=== PATIENT | male | born 1955 | race Caucasian/White ===

== ENCOUNTER → 2016-09-05 | Outpatient (CLI) | payer BC ==
--- NOTE | 2016-09-05 08:53 | DIAGNOSTIC IMAGING REPORT ---
TESTICULAR ULTRASOUND HISTORY: Right testicular pain. COMPARISON: None. FINDINGS: Right testis: 4.3 x 2.3 x 2.8 cm. Slightly heterogeneous appearance to the right testis with a few hypoechoic striations. There are no intratesticular masses. Normal color flow. No hydrocele. The epididymis is unremarkable. Left testis: 4.5 x 2.7 x 2.0 cm. There are no intratesticular masses. Normal color flow. No hydrocele. The epididymis is unremarkable. Left-sided varicocele. IMPRESSION: 1. Slightly heterogeneous appearance the right testis which could be due to mild atrophy or an old small infarct. 2. Normal left testis. 3. Left-sided varicocele. Electronically signed by: Trever Solitario M.D. 09/05/2016 8:51 AM Dictated Date/Time: 09/05/2016 8:49 AM
== END | disposition home or self-care (01) ==
LOC: C.ULTRBC 08:01
PROVIDERS: ATTEND Family Medicine
DX: N50.811 Right testicular pain (principal); I86.1 Scrotal varices

== ENCOUNTER → 2017-02-20 | Outpatient (CLI) | payer BC ==
--- NOTE | 2017-02-20 10:53 | DIAGNOSTIC IMAGING REPORT ---
CAROTID DOPPLER NECK ART CLINICAL HISTORY: 61 years-old Male presenting with VISION CHANGES. TECHNIQUE: Real-time grayscale and color and spectral Doppler ultrasound imaging of the bilateral carotid arteries was performed. NASCET criteria was used in evaluating this study. COMPARISON: None. FINDINGS: Right: Common carotid: Patent. Peak systolic velocity 91 cm/s. Internal carotid artery: Patent. Peak systolic velocity 95 cm/s. External carotid artery: Patent. Peak systolic velocity 127 cm/s. Systolic ratio: 1.0. Left: Common carotid: Patent. Peak systolic velocity 110 cm/s. Internal carotid artery: Patent. Peak systolic velocity 104 cm/s. External carotid artery: Patent. Peak systolic velocity 102 cm/s. Systolic ratio: 0.9. Bilateral antegrade flow within the vertebral arteries. Reference ranges: Normal ICA peak systolic velocity less than 125 cm/s. Normal ICA peak systolic velocity to common carotid artery velocity ratio is less than 2: less than 2 equates to less than 50% stenosis, 2-4 equates to 50-69% stenosis, greater than 4 equates to greater than or equal to 70% stenosis. Normal ICA end-diastolic velocity less than 40. Blood pressure Brachial: Right: 145/79 mmHg, Left: 140/85 mmHg. IMPRESSION: No hemodynamically significant stenosis seen within the carotid arteries. Electronically signed by: Wilber Vasquez M.D. 02/20/2017 10:51 AM Dictated Date/Time: 02/20/2017 10:51 AM
== END | disposition home or self-care (01) ==
LOC: C.ULTRBC 09:59
PROVIDERS: ATTEND Physician Assistant Medical
DX: H53.9 Unspecified visual disturbance (principal)

== ENCOUNTER 2021-05-30 21:51 | Observation (INO) ==
[2021-05-30 22:25] LABS: Basophils # (auto) 0.03 K/uL (0-0.2); Basophils % (auto) 0.5 %; Eosinophils # (auto) 0.22 K/uL (0-0.5); Eosinophils % (auto) 3.4 %; Hematocrit (blood only) 48.9 % (42-52); Immature Granulocytes # (auto) 0.01 K/uL (0.00-0.02); Immature Granulocytes % (auto) 0.2 %; Lymphocytes # (auto) 1.53 K/uL (1.2-3.4); Lymphocytes % (auto) 23.9 %; Mean Corpuscular Hemoglobin 30.7 pg (25-34); Mean Corpuscular Hgb Conc 34.8 g/dL (32-36); Mean Corpuscular Volume 88.4 fL (80-100); Mean Platelet Volume 10.6 fL (7.4-10.4); Monocytes # (auto) 0.84 K/uL (0.11-0.59); Monocytes % (auto) 13.1 %; Neutrophils # (auto) 3.78 K/uL (1.4-6.5); Neutrophils % (auto) 58.9 %; Platelet Count 181 K/uL (130-400); RDW Coefficient of Variation 12.2 % (11.5-14.5); RDW Standard Deviation 39.5 fL (36.4-46.3); Red Blood Count 5.53 M/uL (4.7-6.1); White Blood Count 6.41 K/uL (4.8-10.8)
[2021-05-30 22:36] LABS: Partial Thromboplastin Ratio 0.9; Partial Thromboplastin Time 23.6 Seconds (21.0-31.0); Prothrombin Time 10.5 Seconds (9.0-12.0)
[2021-05-30 22:42] LABS: Alanine Aminotransferase 30 U/L (12-78); Albumin Level 3.9 gm/dl (3.4-5.0); Aspartate Aminotransferase 18 U/L (15-37); BUN Creatinine Ratio 12.5 (10-20); Blood Urea Nitrogen 14 mg/dl (7-18); Calcium 9.3 mg/dl (8.5-10.1); Carbon Dioxide 25 mmol/L (21-32); Chloride 105 mmol/L (98-107); Creatinine Clr Calc Pharmacy 65.2 ml/min; Est GFR (African American) 80.1 ml/min; Est GFR (Non-African American) 69.1 ml/min; Glucose 100 mg/dl (70-99); Potassium 3.8 mmol/L (3.5-5.1); Sodium 138 mmol/L (136-145)
[2021-05-30 22:46] LABS: Alkaline Phosphatase 54 U/L (45-117); Bilirubin,Total 1.1 mg/dl (0.2-1); Total Protein 7.9 gm/dl (6.4-8.2); Troponin I < 0.015 ng/ml (0-0.045)
[2021-05-31] MEDS ORDERED: SODIUM CHLORIDE 0.9% 1000ML 1,000 ML IV SCH ×2 (01:30→05:15)
[2021-05-31] MEDS ORDERED: OPTIRAY 320 125ml IV ONE (02:26)
[2021-05-31] MEDS ORDERED: Heparin IV Adult Wt-Based Standard WITH Bolus Protocol STA (05:06)
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
[2021-05-31 06:40] LABS: INR 1.1 (0.9-1.1); Partial Thromboplastin Time 26.6 Seconds (21.0-31.0)
[2021-05-31] MEDS ORDERED: HEPARIN SOD (PORCINE) 1000 UNIT/ML ONE (06:47)
[2021-05-31] MEDS ORDERED: HEPARIN 25000 UNIT/500 ML D5W IV ONE (06:47)
--- NOTE | 2021-05-31 06:50 | CT Scan Report ---
CT ANGIOGRAPHY OF THE CHEST, PULMONARY EMBOLUS PROTOCOL CLINICAL HISTORY: Palpitations. Evaluate for pulmonary emboli. COMPARISON STUDY: Chest CT August 13, 2006. Chest radiograph May 30, 2021. TECHNIQUE: Following IV administration of 120 mL of Optiray, helical axial images of the chest were o btained utilizing the pulmonary embolus protocol. Maximal intensity projections and sagittal and cor onal reformats were viewed on an independent 3D workstation. IV contrast was administered without co mplication. Automated exposure control was utilized for the study. A dose lowering technique was ut ilized adhering to the principles of ALARA. CT DOSE: 326.85 mGy.cm FINDINGS: There are several segmental pulmonary emboli within the bilateral lower lobes. The size of the heart is normal. No pericardial effusion. No thoracic lymphadenopathy. No thoracic aortic dissec tion is present. Central airways are patent. There are multiple pulmonary nodules within the lungs. S everal of these are calcified. Pulmonary nodules have decreased in size and number since CT of 2006. No new nodules are present. Central airways are patent. No consolidation to suggest pneu monia. There is no pneumothorax or pleural effusion. No acute fracture or suspicious lesion is identi fied within the visualized skeletal structures. IMPRESSION: 1. Several segmental pulmonary emboli within the bilateral lower lobes. 2. Multiple pulmonary nodules, decreased in size and number since chest CT April 12, 2007. These ar e benign. These are nonspecific although could reflect a granulomatous process. ACT 112: Negative or not required by law. Electronically signed by: José Miguel Betts M.D. 05/31/2021 6:49 AM
[2021-05-31] MEDS ORDERED: HEPARIN SOD (PORCINE) 1000 UNIT/ML IV ONE (07:13)
[2021-05-31] MEDS ORDERED: ONDANSETRON INJ 2 MG/ML 2 ML VIAL IV PRN (07:13)
[2021-05-31] MEDS ORDERED: ACETAMINOPHEN 325 MG TAB PO PRN (07:13)
[2021-05-31] MEDS ORDERED: HEPARIN SODIUM/DEXTROSE 25,000 UNITS/500 ML BAG IV SCH (07:13)
--- NOTE | 2021-05-31 08:00 | Ultrasound Report ---
BILATERAL LOWER EXTREMITY VENOUS DOPPLER CLINICAL HISTORY: Pulmonary emboli. COMPARISON STUDY: Right lower extremity venous Doppler ultrasound December 17, 2017. TECHNIQUE: Sonography of the deep venous system of the bilateral lower extremities was performed. Co mpression and augmentation were evaluated. FINDINGS: The bilateral common femoral, superficial femoral and popliteal veins were compressible. A ugmentation was normal. Flow was shown within the deep calf vessels. IMPRESSION: No evidence of deep venous thrombus within the bilateral lower extremities. ACT 112: Negative or not required by law. Electronically signed by: José Miguel Betts M.D. 05/31/2021 7:58 AM
--- NOTE | 2021-05-31 08:18 | XRay Report ---
XR chest 1V portable CLINICAL HISTORY: Atypical chest pain. COMPARISON STUDY: Chest radiograph May 26, 2021. FINDINGS: Lung volumes are normal. Lungs are clear. There is no pneumothorax or pleural effusion. Car diac size is normal. Mediastinal contours are normal. There is no evidence for pulmonary edema. A rig ht midlung nodule is unchanged since prior exam. This is benign given stability. IMPRESSION: No acute cardiopulmonary findings. ACT 112: Negative or not required by law. Electronically signed by: José Miguel Betts M.D. 05/31/2021 8:17 AM
--- NOTE | 2021-05-31 12:27 | XCELERA ---
[id number]
--- NOTE | 2021-05-31 13:22 | Electrocardiogram Report ---
Test Reason : Blood Pressure : / mmHG Vent. Rate : 100 BPM Atrial Rate : 100 BPM P-R Int : 138 ms QRS Dur : 106 ms QT Int : 360 ms P-R-T Axes : 059 174 030 degrees QTc Int : 464 ms Normal sinus rhythm Right ventricular hypertrophy Possible Inferior infarct (cited on or before 26-MAY-2021) Abnormal ECG When compared with ECG of 26-MAY-2021 09:40, No significant change was found Confirmed by Steven Lawson ([id number]) on 05/31/2021 1:21:45 PM Referred By: REFERRED SELF Confirmed By:Rajeev Lawson
[2021-05-31 14:28] LABS: Partial Thromboplastin Ratio 2.5
[2021-05-31 14:37] LABS: Partial Thromboplastin Time 66.1 Seconds (21.0-31.0)
--- NOTE | 2021-05-31 20:25 | Emergency Department Note ---
Impression & Plan Bilateral pulmonary embolism, Heart palpitations ED Provider Note CHIEF COMPLAINT: Heart racing HISTORY OF PRESENT ILLNESS: This 65-year-old male patient presents to the emergency department with complaints of heart palpitations. Patient states 2 separate occasions today he noticed his heart was racing. He took his pulse and it was upwards of 170 bpm. Patient denies any fevers, shortness of breath, chest pain. He states he is not Covid vaccinated. Patient does have a history of sarcoidosis. Pt also expresses concerns about his relationship with his . He wonders if this is a stress reaction to a difficult few days. REVIEW OF SYSTEMS: A review of systems was performed with positives and pertinent negatives listed in the history of present illness. 10 systems were reviewed and are otherwise negative. ALLERGIES: see below MEDICATIONS: see below PMH: see below SOCIAL HISTORY: see below DDx: Premature contractions, electrolyte abnormality, cardiac dysrhythmia, thyroid dysfunction, pulmonary embolism, infection, gastrointestinal, as well as other pathologies. PHYSICAL EXAM: Vital signs reviewed. General: Well-appearing but anxious 65 yo male, in no significant distress. HEENT: No scleral icterus, PERRLA, neck supple. Atraumatic. Cardiovascular: Regular rate and rhythm, no extra sounds. Pulmonary: Clear to auscultation bilaterally, normal work of breathing. Abdomen: Soft, nontender, nondistended, positive bowel sounds. Musculoskeletal: Atraumatic, no peripheral edema. Neurologic: Patient awake alert and oriented x 3, speech is clear Skin: Warm, dry, no rash EMERGENCY DEPARTMENT COURSE/MDM: This patient was evaluated and appeared to be in no significant distress. Patient had waited several hours prior to evaluation due to overwhelming volumes and staffing shortages. He remained stable at the time of my evaluation. Patient seen primarily interested in speaking about his relationship with his , stating that he does not have another outlet to discuss things. Given the history of sarcoidosis some tachycardia, CT imaging of the chest was performed. The study is positive for bilateral pulmonary emboli without evidence of heart strain. EKG reveals right ventricular hypertrophy. Patient's case was discussed with the hospitalist service who will evaluate the patient for admission and further management. MONITORING: An order for cardiac monitoring was placed and the patient is noted to be in a NSR at 97 beats per minute. RADIOLOGY: see below EKG: NSR at [address] segments. Possible previous inferior infarct. RVH, No PVC, no PAC. DISPOSITION: Admit Past Med/Surg History Medical History Abnormal EKG Anxiety BPH (benign prostatic hyperplasia) Dizziness Dyslipidemia Hyperglycemia Impaired fasting glucose Insomnia Lower urinary tract symptoms Pain in right testicle Palpitations Sarcoidosis Tendinitis of left shoulder Tick bite Vision changes Surgical History H/O eye surgery H/O knee surgery History of facial surgery S/P cholecystectomy Family History Mother Lymphoma Father Alcohol abuse Brother Alcohol abuse Bipolar disorder Prostate cancer Depression Cancer Uncle Prostate cancer Cancer Parkinson disease Denies family history of Myocardial infarction Lung cancer Social History Smoking Status: Never smoker Second Hand Exposure: No; Hx Alcohol Use: No Hx Substance Use: No Preferred Language: Micronesian Communication Ability: Effective Visual Impairment: Limited Hearing Ability: Hard of Hearing Loop Cutter Required: No Beliefs That Will Affect Care: None marital status: Current Living Situation: Spouse current occupational status: retired How many Children do You have: 1 Feels Safe at Home: Yes and No Childhood Exposure to Second-Hand Smoke: Yes caffeine: Yes during the past year weight has: remained stable Dental Care, Regularly: Yes Physical Activity Frequency: Daily Seatbelt Use: sometimes Sunscreen Use: No Allergies Allergies Allergy/AdvReac Type Severity Reaction Status Date / Time No Known Drug Allergies Allergy Unknown unknown Verified 05/31/21 10:26 Home Meds Home Medications Medication Instructions Recorded Confirmed lactobacillus combination no.9 4 4,000 mmu cells PO DAILY 04/12/20 06/03/21 billion cell capsule (Adult 50 Plus Probiotic) Previous Rx's Medication Instructions Recorded apixaban 5 mg tablet (Eliquis) 5 mg PO UD #60 tab 06/01/21 Results & Data (ED) Vital Signs Vital Signs - 24 hr 05/31/21 02:25 05/31/21 04:39 Pulse Rate [Finger] 97 H 80 Respiratory Rate 20 Respiratory Effort / Characteristics Non-Labored Spontaneous Respiratory Depth Normal Respiratory Pattern Regular Blood Pressure [Right Arm] 137/83 136/83 Blood Pressure Mean [Right Arm] 101 100 Blood Pressure Position [Right Arm] Sitting Sitting Pulse Oximetry 99 99 Oxygen Delivery Method Room Air Room Air Home Medications Current Medication List: was personally reviewed by me Laboratory Data Attestation: I reviewed the patient's lab results. Result diagrams: 06/01/21 06:19 06/01/21 06:19 Lab Results 05/30/21 05/30/21 05/30/21 Range/Units 22:15 22:15 22:15 WBC 6.41 (4.8-10.8) K/uL RBC 5.53 (4.7-6.1) M/uL Hgb 17.0 (14.0-18.0) g/dL Hct 48.9 (42-52) % MCV 88.4 (80-100) fL MCH 30.7 (25-34) pg MCHC 34.8 (32-36) g/dL RDW Std Deviation 39.5 (36.4-46.3) fL RDW Coeff of [place] 12.2 (11.5-14.5) % Plt Count 181 (130-400) K/uL MPV 10.6 H (7.4-10.4) fL Immature Gran % (Auto) 0.2 % Neut % (Auto) 58.9 % Lymph % (Auto) 23.9 % [place] % (Auto) 13.1 % Eos % (Auto) 3.4 % Baso % (Auto) 0.5 % Neut # (Auto) 3.78 (1.4-6.5) K/uL Lymph # (Auto) 1.53 (1.2-3.4) K/uL [place] # (Auto) 0.84 H (0.11-0.59) K/uL Eos # (Auto) 0.22 (0-0.5) K/uL Baso # (Auto) 0.03 (0-0.2) K/uL Immature Gran # (Auto) 0.01 (0.00-0.02) K/uL PT 10.5 (9.0-12.0) Seconds INR 1.0 (0.9-1.1) APTT 23.6 (21.0-31.0) Seconds PTT Ratio 0.9 Sodium 138 (136-145) mmol/L Potassium 3.8 (3.5-5.1) mmol/L Chloride 105 (98-107) mmol/L Carbon Dioxide 25 (21-32) mmol/L Anion Gap 8.0 (3-11) BUN 14 (7-18) mg/dl Creatinine 1.10 (0.6-1.4) mg/dl Est Cr Clr Drug Dosing 65.2 ml/min Est GFR ( Amer) 80.1 ml/min Est GFR (Non-Af Amer) 69.1 ml/min BUN/Creatinine Ratio 12.5 (10-20) Glucose 100 H (70-99) mg/dl Calcium 9.3 (8.5-10.1) mg/dl Total Bilirubin 1.1 H (0.2-1) mg/dl AST 18 (15-37) U/L ALT 30 (12-78) U/L Alkaline Phosphatase 54 (45-117) U/L Troponin I < 0.015 (0-0.045) ng/ml Total Protein 7.9 (6.4-8.2) gm/dl Albumin 3.9 (3.4-5.0) gm/dl Globulin 4.0 (2.5-4.0) gm/dl Albumin/Globulin Ratio 1.0 (0.9-2) SARS-CoV-2, RNA, NAAT (NEGATIVE) 05/31/21 05/31/21 Range/Units 01:53 04:39 WBC (4.8-10.8) K/uL RBC (4.7-6.1) M/uL Hgb (14.0-18.0) g/dL Hct (42-52) % MCV (80-100) fL MCH (25-34) pg MCHC (32-36) g/dL RDW Std Deviation (36.4-46.3) fL RDW Coeff of [place] (11.5-14.5) % Plt Count (130-400) K/uL MPV (7.4-10.4) fL Immature Gran % (Auto) % Neut % (Auto) % Lymph % (Auto) % [place] % (Auto) % Eos % (Auto) % Baso % (Auto) % Neut # (Auto) (1.4-6.5) K/uL Lymph # (Auto) (1.2-3.4) K/uL [place] # (Auto) (0.11-0.59) K/uL Eos # (Auto) (0-0.5) K/uL Baso # (Auto) (0-0.2) K/uL Immature Gran # (Auto) (0.00-0.02) K/uL PT (9.0-12.0) Seconds INR (0.9-1.1) APTT (21.0-31.0) Seconds PTT Ratio Sodium (136-145) mmol/L Potassium (3.5-5.1) mmol/L Chloride (98-107) mmol/L Carbon Dioxide (21-32) mmol/L Anion Gap (3-11) BUN (7-18) mg/dl Creatinine (0.6-1.4) mg/dl Est Cr Clr Drug Dosing ml/min Est GFR ( Amer) ml/min Est GFR (Non-Af Amer) ml/min BUN/Creatinine Ratio (10-20) Glucose (70-99) mg/dl Calcium (8.5-10.1) mg/dl Total Bilirubin (0.2-1) mg/dl AST (15-37) U/L ALT (12-78) U/L Alkaline Phosphatase (45-117) U/L Troponin I < 0.015 (0-0.045) ng/ml Total Protein (6.4-8.2) gm/dl Albumin (3.4-5.0) gm/dl Globulin (2.5-4.0) gm/dl Albumin/Globulin Ratio (0.9-2) SARS-CoV-2, RNA, NAAT NEGATIVE (NEGATIVE) Administered Medications Discontinued Medications Apixaban (Apixaban 5 Mg Tablet) 10 mg PO BID [facility] Stop: 06/07/21 20:59 Last Admin: 06/01/21 07:42 Dose: 10 mg Documented by: [id number] Admin: 05/31/21 21:37 Dose: 10 mg Documented by: [id number] Heparin Sodium (Porcine) (Heparin Sod (Porcine) 1000 Unit/Ml) Confirm Administered Dose 1,000 units .ROUTE .STK-MED ONE Stop: 05/31/21 06:48 Last Admin: 05/31/21 07:19 Dose: 3,000 units Documented by: [id number] Cosigned by: [id number] Heparin Sodium (Porcine) (Heparin Sod (Porcine) 1000 Unit/Ml) 1 units IV NOW ONE Stop: 05/31/21 07:14 Last Admin: 05/31/21 07:22 Dose: 3,000 units Documented by: [id number] Cosigned by: [id number] Heparin Sodium/Dextrose (Heparin Iv Adult Wt-Based Standard With Bolus Protocol) 1 ea N/A NOW STA; Protocol Stop: 05/31/21 05:07 Last Admin: 05/31/21 07:22 Dose: 1 ea Documented by: [id number] Heparin Sodium/Dextrose (Heparin 47603 Unit/500 Ml D5w) Confirm Administered Dose 25,000 units IV .STK-MED ONE Stop: 05/31/21 06:48 Last Admin: 05/31/21 09:06 Dose: Not Given Documented by: [id number] Sodium Chloride (Nss 1000ml) 1,000 mls @ 150 mls/hr IV .[id number] JENNIFER Stop: 06/30/21 01:29 Last Infusion: 05/31/21 13:14 Dose: 0 mls/hr Documented by: [id number] Admin: 05/31/21 04:55 Dose: 150 mls/hr Documented by: [id number] Sodium Chloride (Nss 1000ml) 1,000 mls @ 150 mls/hr IV .[id number] JENNIFER Stop: 05/31/21 11:54 Last Infusion: 05/31/21 13:15 Dose: 0 mls/hr Documented by: [id number] Admin: 05/31/21 09:03 Dose: 150 mls/hr Documented by: [id number] Heparin Sodium/Dextrose (Heparin Sodium/Dextrose) 25,000 units in 500 mls @ 26 mls/hr IV .[id number] JENNIFER; Protocol Stop: 06/30/21 07:12 Last Titration: 05/31/21 19:06 Dose: 0 units/hr, 0 mls/hr Documented by: [id number] Cosigned by: [id number] Titration: 05/31/21 15:04 Dose: 1,300 units/hr, 26 mls/hr Documented by: [id number] Cosigned by: [id number] Admin: 05/31/21 07:22 Dose: 1,300 units/hr, 26 mls/hr Documented by: [id number] Cosigned by: [id number] Ioversol (Optiray 320 125ml) 120 ml IV ONCE ONE Stop: 05/31/21 02:27 Last Admin: 05/31/21 02:26 Dose: 120 ml Documented by: [id number] Imaging Data Radiologist's Impression: Chest X-Ray 05/30/21 22:03 XR chest 1V portable CLINICAL HISTORY: Atypical chest pain. COMPARISON STUDY: Chest radiograph May 26, 2021. FINDINGS: Lung volumes are normal. Lungs are clear. There is no pneumothorax or pleural effusion. Cardiac size is normal. Mediastinal contours are normal. There is no evidence for pulmonary edema. A right midlung nodule is unchanged since prior exam. This is benign given stability. IMPRESSION: No acute cardiopulmonary findings. ACT 112: Negative or not required by law. Electronically signed by: José Miguel Betts M.D. 05/31/2021 8:17 AM Chest CTA 05/31/21 01:13 CT ANGIOGRAPHY OF THE CHEST, PULMONARY EMBOLUS PROTOCOL CLINICAL HISTORY: Palpitations. Evaluate for pulmonary emboli. COMPARISON STUDY: Chest CT August 13, 2006. Chest radiograph May 30, 2021. TECHNIQUE: Following IV administration of 120 mL of Optiray, helical axial images of the chest were obtained utilizing the pulmonary embolus protocol. Maximal intensity projections and sagittal and coronal reformats were viewed on an independent 3D workstation. IV contrast was administered without complication. Automated exposure control was utilized for the study. A dose lowering technique was utilized adhering to the principles of ALARA. CT DOSE: 326.85 mGy.cm FINDINGS: There are several segmental pulmonary emboli within the bilateral lower lobes. The size of the heart is normal. No pericardial effusion. No thoracic lymphadenopathy. No thoracic aortic dissection is present. Central airways are patent. There are multiple pulmonary nodules within the lungs. Sever al of these are calcified. Pulmonary nodules have decreased in size and number since CT of August 13, 2006. No new nodules are present. Central airways are patent. No consolidation to suggest pneumonia. There is no pneumothorax or pleural effusion. No acute fracture or suspicious lesion is identified within the visualized skeletal structures. IMPRESSION: 1. Several segmental pulmonary emboli within the bilateral lower lobes. 2. Multiple pulmonary nodules, decreased in size and number since chest CT April 12, 2007. These are benign. These are nonspecific although could reflect a granulomatous process. ACT 112: Negative or not required by law. Electronically signed by: José Miguel Betts M.D. 05/31/2021 6:49 AM Blood Pressure Blood Pressure Findings: Normal blood pressure Blood Pressure Disposition: did not require urgent referral Discharge Plan Visit Data Chief Complaint: Cardiac Assessment Stated Complaint: RAPID HEARTBEAT FOR AN HOUR ED Provider: Jeni Tipton Discharge Problem: Bilateral pulmonary embolism, Heart palpitations Patient Disposition: Admitted As Inpatient Discharge Instructions Interventions: ED Discharge Assessment Last Done: 05/31/21 08:04
[2021-05-31] MEDS: APIXABAN 5 MG TABLET PO SCH (21:37)
--- NOTE | 2021-05-31 23:25 | Hospitalist Progress Note ---
Date of Service May 31, 2021 Assessment & Plan (1) Bilateral pulmonary embolism: Plan: unprovoked. etiology? brewing sarcoid? other? currently on IV heparin. we discussed DOACs vs coumadin. discussed risks/benefits, cost factors, etc. ran his insurance -less than $20/month will start eliquis tonight 10mg BID x 7 days, then 5mg BID thereafter; stop IV heparin tonight will need at least 6 months of Rx consider sending back to pulmonary to check status of sarcoid, but again it is likely quiescent (no chronic pulmonary symptoms, CT chest shows smaller nodules and decreased #s of nodules, etc) should have all age-appropriate cancer screenings as outpatient (2) Heart palpitations: Plan: PAF due to #1? SVT? sinus tach? telemetry overnight if negative - consider outpatient monitoring (3) History of sarcoidosis: Plan: see discussion above in #1 check ESR in am first diagnosed in early quiescent since Plan: await echo - ordered due to abnormal EKG and his PEs probable d/c in am Admission and Anticipated Discharge Date Admission Date: May 31, 2021 Subjective patient feeling well no dyspnea no pleuritic chest pain no dyspnea on exertion earlier today he thought his heart was racing I looked at monitor - just artifact he reports that his sarcoid was diagnosed in the early quiescent since then no recent travel no recent surgery no immobility no family or personal h/o VTE has been feeling well over the last few months with no illness, COVID, or COVID vaccine (had latter in early 2020) numerous questions about anticoagulation Review of Systems Review of Systems: gen - no fevers, no chills, no weight loss cv - no chest pain pulm - no cough GI - no abd pain Physical Exam Physical Exam: gen - NAD, looks great neck - no JVD mouth - mmm heart - RRR, s1 s2, no murmur lungs - cta b/l abd - soft, NT, ND, BS+, no HSM ext - no edema, pulses 2+ b/l skin - no rash lymph - no cervical lymphadenopathy Results & Data Results & Data ([facility]) Vital Signs (Past 12 Hours) Vital Signs Temp Pulse Pulse Resp BP BP Pulse Ox 05/31/21 22:54 36.5 C 84 18 110/73 98 05/31/21 21:42 90 05/31/21 18:00 37.1 C 95 H 16 124/80 97 05/31/21 15:00 95 H 18 115/76 05/31/21 14:30 87 20 05/31/21 14:00 88 12 05/31/21 13:30 88 20 05/31/21 13:00 90 18 05/31/21 12:30 99 H 19 05/31/21 12:00 20 05/31/21 11:50 95 H 18 125/81 99 05/31/21 11:30 92 H 18 Laboratory Results Laboratory Results - last 24 hr 05/31/21 05/31/21 05/31/21 01:53 04:39 05:32 PT 11.0 INR 1.1 APTT 26.6 PTT Ratio 1.0 Troponin I < 0.015 SARS-CoV-2, RNA, NAAT NEGATIVE 05/31/21 13:59 PT INR APTT 66.1 H* PTT Ratio 2.5 Troponin I SARS-CoV-2, RNA, NAAT Diagnostic Findings Chest X-Ray 05/30/21 22:03 XR chest 1V portable CLINICAL HISTORY: Atypical chest pain. COMPARISON STUDY: Chest radiograph May 26, 2021. FINDINGS: Lung volumes are normal. Lungs are clear. There is no pneumothorax or pleural effusion. Cardiac size is normal. Mediastinal contours are normal. There is no evidence for pulmonary edema. A right midlung nodule is unchanged since prior exam. This is benign given stability. IMPRESSION: No acute cardiopulmonary findings. ACT 112: Negative or not required by law. Electronically signed by: José Miguel Betts M.D. 05/31/2021 8:17 AM Chest CTA 05/31/21 01:13 CT ANGIOGRAPHY OF THE CHEST, PULMONARY EMBOLUS PROTOCOL CLINICAL HISTORY: Palpitations. Evaluate for pulmonary emboli. COMPARISON STUDY: Chest CT August 13, 2006. Chest radiograph May 30, 2021. TECHNIQUE: Following IV administration of 120 mL of Optiray, helical axial images of the chest were obtained utilizing the pulmonary embolus protocol. Maximal intensity projections and sagittal and coronal reformats were viewed on an independent 3D workstation. IV contrast was administered without complication. Automated exposure control was utilized for the study. A dose lowering technique was utilized adhering to the principles of ALARA. CT DOSE: 326.85 mGy.cm FINDINGS: There are several segmental pulmonary emboli within the bilateral lower lobes. The size of the heart is normal. No pericardial effusion. No thoracic lymphadenopathy. No thoracic aortic dissection is present. Central airways are patent. There are multiple pulmonary nodules within the lungs. Several of these are calcified. Pulmonary nodules have decreased in size and number since CT of August 13, 2006. No new nodules are present. Central airways are patent. No consolidation to suggest pneumonia. There is no pneumothorax or pleural effusion. No acute fracture or suspicious lesion is identified within the visualized skeletal structures. IMPRESSION: 1. Several segmental pulmonary emboli within the bilateral lower lobes. 2. Multiple pulmonary nodules, decreased in size and number since chest CT April 12, 2007. These are benign. These are nonspecific although could reflect a granulomatous process. ACT 112: Negative or not required by law. Electronically signed by: José Miguel Betts M.D. 05/31/2021 6:49 AM Venous Doppler Study 05/31/21 05:25 BILATERAL LOWER EXTREMITY VENOUS DOPPLER CLINICAL HISTORY: Pulmonary emboli. COMPARISON STUDY: Right lower extremity venous Doppler ultrasound December 17, 2017. TECHNIQUE: Sonography of the deep venous system of the bilateral lower extremities was performed. Compression and augmentation were evaluated. FINDINGS: The bilateral common femoral, superficial femoral and popliteal veins were compressible. Augmentation was normal. Flow was shown within the deep calf vessels. IMPRESSION: No evidence of deep venous thrombus within the bilateral lower extremities. ACT 112: Negative or not required by law. Electronically signed by: José Miguel Betts M.D. 05/31/2021 7:58 AM PG Care Time/CCT Total # of Minutes Spent Total Time Spent with Patient: Total time spent is greater than 50% in coordination of care (as documented) at patient's floor/unit and/or counseling patient: Coding Level of Care Code 60932 Subseq Hosp Care Lvl 2 Diagnoses Bilateral pulmonary embolism I26.99 Heart palpitations R00.2 History of sarcoidosis Z86.2
--- NOTE | 2021-06-01 05:41 | Billing Data ---
Date of Service June 01, 2021 Coding Level of Care Code INT OBSERVATION CARE 70M LVL 3
[2021-06-01 06:41] LABS: Hematocrit (blood only) 47.3 % (42-52); Hemoglobin 16.2 g/dL (14.0-18.0); Mean Corpuscular Hemoglobin 30.6 pg (25-34); Mean Corpuscular Hgb Conc 34.2 g/dL (32-36); Mean Corpuscular Volume 89.4 fL (80-100); Mean Platelet Volume 10.4 fL (7.4-10.4); Platelet Count 168 K/uL (130-400); RDW Coefficient of Variation 12.3 % (11.5-14.5); RDW Standard Deviation 40.1 fL (36.4-46.3); Red Blood Count 5.29 M/uL (4.7-6.1); White Blood Count 6.03 K/uL (4.8-10.8)
[2021-06-01 07:29] LABS: BUN Creatinine Ratio 16.4 (10-20); Calcium 9.5 mg/dl (8.5-10.1); Creatinine Clr Calc Pharmacy 65.2 ml/min; Est GFR (African American) 80.1 ml/min; Est GFR (Non-African American) 69.1 ml/min; Potassium 3.9 mmol/L (3.5-5.1)
[2021-06-01] MEDS: APIXABAN 5 MG TABLET PO SCH (07:42)
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
== END 2021-06-01 13:45 | disposition home or self-care (01) ==
LOC: ED 21:51 → EDINP 21:51 → SUATTDRO 05-31 05:06 → 3N 05-31 08:04 → 2N 05-31 21:16

== ENCOUNTER 2022-07-25 16:24 | Observation (INO) ==
[2022-07-25] MEDS ORDERED: MAGNESIUM SULFATE / D5W 1 GM/100 ML BAG IV STA (17:52)
[2022-07-25] MEDS ORDERED: dilTIAZem HCl 5 MG/ML 5 ML VIAL IV STA ×2 (17:52→20:52)
[2022-07-25] MEDS ORDERED: SODIUM CHLORIDE 0.9% 1000ML 500 ML IV ONE (17:52)
[2022-07-25 17:53] LABS: Basophils # (auto) 0.05 K/uL (0-0.2); Basophils % (auto) 0.6 %; Eosinophils % (auto) 2.6 %; Hematocrit (blood only) 52.9 % (40.1-51.0); Hemoglobin 18.5 g/dl (14.0-18.0); Immature Granulocytes # (auto) 0.02 K/uL (0.00-0.02); Immature Granulocytes % (auto) 0.3 %; Lymphocytes % (auto) 11.6 %; Mean Corpuscular Hemoglobin 30.2 pg (25.0-34.0); Mean Corpuscular Volume 86.4 fL (80.0-100.0); Mean Platelet Volume 10.7 fL (9.4-12.4); Monocytes # (auto) 0.74 K/uL (0.24-0.82); Monocytes % (auto) 9.5 %; Neutrophils # (auto) 5.86 K/uL (1.4-6.5); Neutrophils % (auto) 75.4 %; Platelet Count 203 K/uL (130-400); RDW Coefficient of Variation 11.9 % (11.5-14.5); RDW Standard Deviation 37.8 fL (36.4-46.3); Red Blood Count 6.12 M/uL (4.63-6.08); White Blood Count 7.77 K/ul (4.8-10.8)
--- NOTE | 2022-07-25 18:01 | XRay Report ---
XR chest 1V portable CLINICAL HISTORY: Chest pain, nonspecific TECHNIQUE: Single frontal radiograph of the chest was obtained. Comparison: Comparison is made to chest radiograph 06/03/2021 FINDINGS: No lines and tubes are seen. Cardiomegaly is noted. Reticular interstitial opacities are seen. No liset dence of pleural effusion or pneumothorax. IMPRESSION: No acute chest disease. ACT 112: Negative or not required by law. Electronically signed by: Ruperto Watts M.D. 07/25/2022 5:59 PM
--- NOTE | 2022-07-25 18:08 | Emergency Department Note ---
Impression & Plan AF (paroxysmal atrial fibrillation), Heart palpitations, Polycythemia ED Provider Note NAME: BRI MADRIGAL AGE: 66 SEX: M : 1955 ARRIVES VIA: Walk-In INFORMANT: Patient, ED PROVIDER(S): Alejandro Akers DO CHIEF COMPLAINT: Palpitations HPI: The patient is a 66-year-old male who is been having problems with palpitations and fast heart rate over the last few days. The patient states he set up an appointment to see his doctor. He was seen and had an EKG done which revealed signs of an abnormal heart rate. He was sent to the emergency department for further evaluation. The patient states he has had similar processes in the past with pulmonary embolism. He denies having any chest pain. He denies having any difficulty breathing. He states he felt very similar in the past when he did have a pulmonary embolism. He denies having any swelling in his legs. He said no recent traveling. ROS: See above HPI for pertinent positives & negatives. A total of 10 systems reviewed and were otherwise negative. PAST MEDICAL HISTORY: See Below PAST SURGICAL HISTORY: See Below FAMILY HISTORY: See Below SOCIAL HISTORY: See Below HOME MEDICATIONS: See Below ALLERGIES: See Below VITALS: See Below PHYSICAL EXAMINATION: GENERAL: Patient is awake alert in no acute distress patient is resting comfortably and showing no signs of anxiety EYES: The conjunctivae are clear. The pupils are round and reactive. EARS, NOSE, MOUTH AND THROAT: The nose is without any evidence of any deformity. NECK: The neck is nontender and supple. RESPIRATORY: Normal respiratory effort is noted there is no evidence of wheezing rhonchi or rales CARDIOVASCULAR: Tachycardic and regular heart sounds were noted to auscultation. There is no definite murmur. GASTROINTESTINAL: The abdomen is soft. Abdomen is nontender. MUSCULOSKELETAL/EXTREMITIES: There is no evidence of gross deformity full range of motion is noted in the hips and shoulders. SKIN: There is no obvious evidence of any rash. There was no calf tenderness. NEUROLOGIC: Patient is awake alert and oriented x3 strength is symmetric patellar reflexes are 2+ bilaterally MEDICAL DECISION MAKING: The patient is a 66-year-old male who presented to the emergency department for an evaluation of palpitations. The patient was seen by his primary care physician. He was found to have an EKG that was consistent with possible atrial flutter. He was sent to the emergency department for further evaluation the patient states that he had similar episode in the past with pulmonary embolism. CT of the chest was obtained and no signs of pulmonary embolism were noted. Patient was evaluated and treated with IV fluids. He was also treated with IV magnesium. I withheld giving him any antidysrhythmic as the patient was in sinus rhythm on multiple occasions. On the equipment monitor phototypesetting he also had episodes of an irregular rhythm. I do feel this is consistent with atrial fib or flutter. For this reason I will discussed the case with the on-call [facility] hospitalist Triage Nursing notes reviewed. Prior medical records reviewed Vital Signs: reviewed and remarkable for tachycardia Differential diagnosis: Premature contractions, electrolyte abnormality, cardiac dysrhythmia, thyroid dysfunction, pulmonary embolism, infection, gastrointestinal, as well as other pathologies. ER treatment provided: See below Diagnostics interpreted by me: ECG: EKG was obtained in the emergency department. My interpretation is sinus tachycardia at 105 bpm. PACs were noted. Right bundle branch block pattern was appreciated. This was compared to a tracing from August 13, 2021. No changes were noted. An EKG that was done in the office today was reviewed. My interpretation is sinus tachycardia at 113 bpm. PACs were noted. The previously noted right bundle branch block pattern is still present. A second EKG was obtained in the emergency department. My interpretation is sinus tachycardia 101 bpm. Right bundle-branch block pattern was noted. This is unchanged from the initial EKG. Cardiac Monitoring: An order was placed for continuous cardiac monitoring. The monitor shows a rate 98 bpm with sinus rhythm. Patient's equipment monitor phototypesetting was also reevaluated. At 1 point it was atrial fibrillation at 147 bpm. Laboratory studies: As stated above and show below. Imaging studies: See below. Radiographic imaging was reviewed by myself Consultation(s): I discussed this case with Dr. Mccullough [facility] Past Med/Surg History Medical History Anxiety Bilateral pulmonary embolism BPH (benign prostatic hyperplasia) Dyslipidemia Heart palpitations Hyperglycemia Insomnia Lower urinary tract symptoms Pain in right testicle Sarcoidosis Surgical History H/O eye surgery H/O knee surgery History of facial surgery S/P cholecystectomy Family History Mother Lymphoma Father Alcohol abuse Brother Alcohol abuse Bipolar disorder Prostate cancer Depression Cancer Uncle Prostate cancer Cancer Parkinson disease Denies family history of Myocardial infarction Lung cancer Social History Smoking Status: Never smoker Second Hand Exposure: No; Hx Alcohol Use: No Hx Substance Use: No Preferred Language: Tongan Communication Ability: Effective Visual Impairment: Limited Hearing Ability: Hard of Hearing Custom Dressmaker Required: No Beliefs That Will Affect Care: None marital status: Current Living Situation: Spouse current occupational status: retired How many Children do You have: 1 Feels Safe at Home: Yes Childhood Exposure to Second-Hand Smoke: Yes caffeine: Yes during the past year weight has: remained stable Dental Care, Regularly: Yes Physical Activity Frequency: Daily Seatbelt Use: sometimes Sunscreen Use: No Allergies Allergies Allergy/AdvReac Type Severity Reaction Status Date / Time metoprolol Allergy Mild Verified 07/25/22 15:03 Home Meds Home Medications Medication Instructions Recorded Confirmed lactobacillus combination no.9 4 4,000 mmu cells PO DAILY 04/12/20 07/10/22 billion cell capsule (Adult 50 Plus Probiotic) aspirin 81 mg tablet,delayed 81 mg PO DAILY 12/08/21 07/25/22 release (Gilmar Low Dose Aspirin) triamcinolone acetonide 55 mcg 1 spray intranasal DAILY 07/25/22 07/25/22 nasal spray aerosol (Nasacort) Results & Data (ED) Vital Signs Vital Signs - 24 hr 07/25/22 16:54 Temperature 37.0 C Temperature Source Temporal Artery Scan Pulse Rate 116 H Pulse Rhythm Regular Pulse Strength Normal Respiratory Rate 17 Respiratory Effort / Characteristics Non-Labored Respiratory Depth Normal Respiratory Pattern Regular Blood Pressure 139/90 Blood Pressure Mean 106 Blood Pressure Position Sitting Pulse Oximetry 98 Oxygen Delivery Method Room Air Sepsis Recent Fever Within 48 Hours No Sepsis New/Unexplained Change in Mental Status No Sepsis Action Taken by Nursing No Action Required Home Medications Current Medication List: was personally reviewed by me Laboratory Data Attestation: I reviewed the patient's lab results. 07/25/22 17:15 07/25/22 17:15 Lab Results 07/25/22 07/25/22 07/25/22 Range/Units 17:15 17:15 17:15 WBC 7.77 (4.8-10.8) K/ul RBC 6.12 H (4.63-6.08) M/uL Hgb 18.5 H (14.0-18.0) g/dl Hct 52.9 H (40.1-51.0) % MCV 86.4 (80.0-100.0) fL MCH 30.2 (25.0-34.0) pg MCHC 35.0 (32.0-36.0) g/dL RDW Std Deviation 37.8 (36.4-46.3) fL RDW Coeff of Shiloh 11.9 (11.5-14.5) % Plt Count 203 (130-400) K/uL MPV 10.7 (9.4-12.4) fL Immature Gran % (Auto) 0.3 % Neut % (Auto) 75.4 % Lymph % (Auto) 11.6 % Mathews % (Auto) 9.5 % Eos % (Auto) 2.6 % Baso % (Auto) 0.6 % Neut # (Auto) 5.86 (1.4-6.5) K/uL Lymph # (Auto) 0.90 L (1.2-3.4) K/uL Mathews # (Auto) 0.74 (0.24-0.82) K/uL Eos # (Auto) 0.20 (0-0.50) K/uL Baso # (Auto) 0.05 (0-0.2) K/uL Immature Gran # (Auto) 0.02 (0.00-0.02) K/uL PT 10.6 (9.0-12.0) Seconds INR 1.0 (0.9-1.1) APTT 26.0 (21.0-31.0) Seconds PTT Ratio 0.9 D-Dimer 490 (0-500) ug/L FEU Sodium 141 (136-145) mmol/L Potassium 4.0 (3.5-5.1) mmol/L Chloride 104 (98-107) mmol/L Carbon Dioxide 32 (21-32) mmol/L Anion Gap 5 (3-11) BUN 14 (6-23) mg/dl Creatinine 0.96 (0.6-1.4) mg/dl Est Cr Clr Drug Dosing 73.6 ml/min Est GFR ( Amer) 93.8 ml/min Est GFR (Non-Af Amer) 80.9 ml/min BUN/Creatinine Ratio 14.6 (10-20) Glucose 110 H (70-99(Fasting)) mg/dl Calcium 10.7 H (8.5-10.1) mg/dl Magnesium 2.2 (1.7-2.4) mg/dl Total Bilirubin 0.7 (0.2-1.0) mg/dl AST 25 (13-39) U/L ALT 26 (7-52) U/L Alkaline Phosphatase 45 (34-104) U/L Troponin I High Sens 9.6 (0-20) pg/ml Total Protein 7.4 (6.0-8.3) gm/dl Albumin 4.4 (3.4-5.0) gm/dl Globulin 3.0 (2.5-4.0) gm/dl Albumin/Globulin Ratio 1.5 (0.9-2) TSH (0.300-4.500) uIu/ml SARS-CoV-2, RNA, NAAT (NEGATIVE) 07/25/22 07/25/22 Range/Units 17:15 17:15 WBC (4.8-10.8) K/ul RBC (4.63-6.08) M/uL Hgb (14.0-18.0) g/dl Hct (40.1-51.0) % MCV (80.0-100.0) fL MCH (25.0-34.0) pg MCHC (32.0-36.0) g/dL RDW Std Deviation (36.4-46.3) fL RDW Coeff of Shiloh (11.5-14.5) % Plt Count (130-400) K/uL MPV (9.4-12.4) fL Immature Gran % (Auto) % Neut % (Auto) % Lymph % (Auto) % Mathews % (Auto) % Eos % (Auto) % Baso % (Auto) % Neut # (Auto) (1.4-6.5) K/uL Lymph # (Auto) (1.2-3.4) K/uL Mathews # (Auto) (0.24-0.82) K/uL Eos # (Auto) (0-0.50) K/uL Baso # (Auto) (0-0.2) K/uL Immature Gran # (Auto) (0.00-0.02) K/uL PT (9.0-12.0) Seconds INR (0.9-1.1) APTT (21.0-31.0) Seconds PTT Ratio D-Dimer (0-500) ug/L FEU Sodium (136-145) mmol/L Potassium (3.5-5.1) mmol/L Chloride (98-107) mmol/L Carbon Dioxide (21-32) mmol/L Anion Gap (3-11) BUN (6-23) mg/dl Creatinine (0.6-1.4) mg/dl Est Cr Clr Drug Dosing ml/min Est GFR ( Amer) ml/min Est GFR (Non-Af Amer) ml/min BUN/Creatinine Ratio (10-20) Glucose (70-99(Fasting)) mg/dl Calcium (8.5-10.1) mg/dl Magnesium (1.7-2.4) mg/dl Total Bilirubin (0.2-1.0) mg/dl AST (13-39) U/L ALT (7-52) U/L Alkaline Phosphatase (34-104) U/L Troponin I High Sens (0-20) pg/ml Total Protein (6.0-8.3) gm/dl Albumin (3.4-5.0) gm/dl Globulin (2.5-4.0) gm/dl Albumin/Globulin Ratio (0.9-2) TSH 1.733 (0.300-4.500) uIu/ml SARS-CoV-2, RNA, NAAT NEGATIVE (NEGATIVE) Administered Medications Discontinued Medications Diltiazem HCl (Diltiazem Hcl 5 Mg/Ml 5 Ml Vial) 10 mg IV NOW STA Stop: 07/25/22 17:53 Last Admin: 07/25/22 18:06 Dose: Not Given Documented By: [id number] Sodium Chloride (Nss 1000ml) 500 mls @ 999 mls/hr IV .Q31M ONE Stop: 07/25/22 18:22 Last Admin: 07/25/22 18:06 Dose: 999 mls/hr Documented By: [id number] Magnesium Sulfate/Dextrose (Magnesium Sulfate / D5w) 1 gm in 100 mls @ 100 mls/hr IV NOW STA Stop: 07/25/22 18:51 Last Admin: 07/25/22 18:06 Dose: 100 mls/hr Documented By: [id number] Ioversol (Optiray 320 500ml) 105 ml IV ONCE ONE Stop: 07/25/22 19:12 Last Admin: 07/25/22 19:12 Dose: 105 ml Documented By: Cole Imaging Data Radiologist's Impression: Chest X-Ray 07/25/22 16:57 XR chest 1V portable CLINICAL HISTORY: Chest pain, nonspecific TECHNIQUE: Single frontal radiograph of the chest was obtained. Comparison: Comparison is made to chest radiograph 06/03/2021 FINDINGS: No lines and tubes are seen. Cardiomegaly is noted. Reticular interstitial opacities are seen. No evidence of pleural effusion or pneumothorax. IMPRESSION: No acute chest disease. ACT 112: Negative or not required by law. Electronically signed by: Ruperto Watts M.D. 07/25/2022 5:59 PM Chest CTA 07/25/22 18:04 CT angio chest PE protocol CLINICAL HISTORY: PE TECHNIQUE: Multidetector row helical CT of the chest was performed with angiographic protocol. Coronal and sagittal reformations were obtained. Coronal and sagittal MIPS were obtained from the axial data set and were submitted for review. Automated dose lowering techniques and/or adjustment according to patient size were utilized for this exam. CT DOSE: 342.87 mGy.cm Comparison: Comparison is made to CTA chest 12/09/2021 FINDINGS: Lungs and pleura: Calcified granulomata and biapical scarring is seen. Multiple stable pulmonary nodules are seen including the followin mm nodule in the right upper lobe (series 4 image 188) 3 mm nodule in the left upper lobe (image 143) 6 mm nodule in the right middle lobe (image 128) 5 mm nodule in the right lower lobe (image 121) 3 mm nodule in the right upper lobe (image 180). Heart and pericardium: Heart size is normal. No pericardial effusion. Vessels: No evidence of pulmonary embolism. Mediastinum and marianna: Unremarkable. Chest wall and lower neck: Unremarkable. Abdomen: Unremarkable. Bones: Degenerative changes in the thoracic spine. IMPRESSION: 1. No pulmonary embolus is seen. 2. Pulmonary nodules as above. ACT 112: Negative or not required by law. Electronically signed by: Ruperto Watts M.D. 07/25/2022 7:33 PM Discharge Plan Visit Data Chief Complaint: Abnormal Labs/Diagnostic Testing Stated Complaint: ABNORMAL LABS, REF BY DOC, RAPID HEART BEAT ED Provider: Alejandro Akers Discharge Problem: AF (paroxysmal atrial fibrillation), Heart palpitations, Polycythemia Patient Disposition: Being Evaluated by Hospitalist Forms Stand Alone Forms: My [facility] Prescriptions Prescriptions: No Action aspirin [Gilmar Low Dose Aspirin] 81 mg tablet,delayed release (DR/EC) 81 mg PO DAILY triamcinolone acetonide [Nasacort] 55 mcg aerosol,spray 1 spray intranasal DAILY Rx Instructions: administer into each nostril Adult 50 Plus Probiotic 4 billion cell capsule 4,000 mmu cells PO DAILY Rx Instructions: administer with a meal Referrals Referrals: Cathryn Bello MD [Primary Care Provider] -
[2022-07-25 18:10] LABS: Albumin Globulin Ratio 1.5 (0.9-2); Albumin Level 4.4 gm/dl (3.4-5.0); BUN Creatinine Ratio 14.6 (10-20); Bilirubin,Total 0.7 mg/dl (0.2-1.0); Calcium 10.7 mg/dl (8.5-10.1); Creatinine Clr Calc Pharmacy 73.6 ml/min; Est GFR (African American) 93.8 ml/min; Est GFR (Non-African American) 80.9 ml/min; Total Protein 7.4 gm/dl (6.0-8.3)
[2022-07-25 18:16] LABS: Troponin I High Sensitivity 9.6 pg/ml (0-20)
[2022-07-25 18:39] LABS: D Dimer 490 ug/L FEU (0-500); Partial Thromboplastin Ratio 0.9; Prothrombin Time 10.6 Seconds (9.0-12.0)
[2022-07-25 19:02] LABS: Magnesium 2.2 mg/dl (1.7-2.4)
[2022-07-25] MEDS ORDERED: OPTIRAY 320 500ml IV ONE (19:11)
--- NOTE | 2022-07-25 19:34 | CT Scan Report ---
CT angio chest PE protocol CLINICAL HISTORY: PE TECHNIQUE: Multidetector row helical CT of the chest was performed with angiographic protocol. Zamora l and sagittal reformations were obtained. Coronal and sagittal MIPS were obtained from the axial hudson a set and were submitted for review. Automated dose lowering techniques and/or adjustment according to patient size were utilized for this exam. CT DOSE: 342.87 mGy.cm Comparison: Comparison is made to CTA chest 12/09/2021 FINDINGS: Lungs and pleura: Calcified granulomata and biapical scarring is seen. Multiple stable pulmonary nodu les are seen including the followin mm nodule in the right upper lobe (series 4 image 188) 3 mm nodule in the left upper lobe (image 143) 6 mm nodule in the right middle lobe (image 128) 5 mm nodule in the right lower lobe (image 121) 3 mm nodule in the right upper lobe (image 180). Heart and pericardium: Heart size is normal. No pericardial effusion. Vessels: No evidence of pulmonary embolism. Mediastinum and marianna: Unremarkable. Chest wall and lower neck: Unremarkable. Abdomen: Unremarkable. Bones: Degenerative changes in the thoracic spine. IMPRESSION: 1. No pulmonary embolus is seen. 2. Pulmonary nodules as above. ACT 112: Negative or not required by law. Electronically signed by: Ruperto Watts M.D. 07/25/2022 7:33 PM
[2022-07-25] MEDS ORDERED: AMOXICILLIN/CLAVULANATE 875 MG TAB PO ONE (21:01)
--- NOTE | 2022-07-25 21:01 | History & Physical Report ---
Date of Service July 25, 2022 Assessment & Plan (1) Heart palpitations: Plan: 66-year-old male presenting with heart palpitations ongoing since 11:00 this morning. On monitor and EKG appears to be in sinus tachycardia with frequent PACs. Blood pressure is stable, patient minimally symptomatic. Electrolytes within normal limits to include magnesium = 2.2, potassium = 4. TSH is within normal limits at 1.733. Troponin is normal at 9.6. Mild elevation of calcium at 10.7 Patient administered 15 mg of diltiazem IV in the ER, heart rate has been better controlled since Admit to PCU, continuous cardiac monitoring Check 2D echo Gentle IV fluids with LR at 80 mL/h x 1 L Cardiology consultation (2) Polycythemia: Plan: Hgb elevated 18.5, HCT elevated at 52.9. Patient does not smoke. does report that he snores. Patient does not wish to have a sleep study performed at this time IV fluids as above Repeat CBC in the morning (3) Sarcoidosis: Plan: Patient was diagnosed with sarcoidosis in 2004 after presenting with swelling of his parotid gland. He did have a lymph node biopsy. Stable pulmonary lesions noted on CT. Question if mild elevation of calcium (10.7) secondary to sarcoid. Question if possibility of cardiac sarcoid needs to be considered inpatient with palpitations. Ionized calcium with a.m. labs 2D echo as above History of Present Illness Chief Complaint: Palpitations Primary Care Provider: Cathryn Bello MD Bala Mcwilliams is a pleasant 66-year-old male with history of hyperlipidemia, BPH, prior PE and sarcoidosis presenting at the request of his PCP with rapid, irregular heart rate. Patient has experienced episodes of fast heart rate and palpitations in the past. He wore a heart monitor in June 2021 for a week which revealed baseline sinus tachycardia with no identified arrhythmias. He has been on metoprolol in the past for palpitations which seemed to help his heart rate. However, he did get a rash on 2 occasions associated with taking metoprolol. Patient began feeling palpitations this morning around 11:00 which persisted for approximately 2 to 2-1/2 hours. He reports checking his heart rate using a home oxygen monitorheart rate varied from the 50s to the 160s. He called his PCP and was later seen in the office. He had an EKG performed which was concerning for atrial fibrillation with RVRrate of 113. He was subsequently sent to the ER. Patient is active and independent. He denies chest pain, shortness of breath or syncope. He does have occasional episodes of vertigo which do not seem to correspond with palpitations. He denies dyspnea, orthopnea or edema. Patient has seen ENT for his episodic vertigo. Believed to be secondary in part to sinusitis. He was started on Augmentin 875/125 twice daily for 10-day course (to continue through 07/31/2022) as well as Nasacort. These were the only 2 new medications. Patient denies increased caffeine use or stimulants. No a dditional complaints at this time In the ER patient with variable heart rate ranging 91 to 145 bpm. Several EKGs obtainedseem to be sinus tachycardia with PACs. Seems to be sinus tachycardia with PACs on monitor as well. ER course: Normal saline x500 mL, magnesium sulfate x1 g, diltiazem 50 mg IV, Augmentin 1 tab Allergies Allergy/AdvReac Type Severity Reaction Status Date / Time metoprolol Allergy Mild Verified 07/25/22 20:21 Home Medications Medication Instructions Recorded Confirmed Type aspirin 81 mg tablet,delayed 81 mg PO DAILY 12/08/21 07/25/22 History release ([place] Low Dose Aspirin) lactobacillus combination no.4 3 3,000 mmu cells PO DAILY 07/25/22 07/25/22 History billion cell capsule (Probiotic) triamcinolone acetonide 55 mcg 1 spray intranasal DAILY PRN 07/25/22 07/25/22 History nasal spray aerosol (Nasacort) Congestion Past Med/Surg History Medical History Anxiety Bilateral pulmonary embolism BPH (benign prostatic hyperplasia) Dyslipidemia Heart palpitations Hyperglycemia Insomnia Lower urinary tract symptoms Pain in right testicle Sarcoidosis Surgical History H/O eye surgery H/O knee surgery History of facial surgery S/P cholecystectomy Family History Mother Lymphoma Father Alcohol abuse Brother Alcohol abuse Bipolar disorder Prostate cancer Depression Cancer Uncle Prostate cancer Cancer Parkinson disease Denies family history of Myocardial infarction Lung cancer Social History Smoking Status: Never smoker Second Hand Exposure: No; Hx Alcohol Use: No Hx Substance Use: No Preferred Language: Ecuadorean Communication Ability: Effective Visual Impairment: Limited Hearing Ability: Hard of Hearing 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 Beliefs That Will Affect Care: None marital status: Current Living Situation: Spouse current occupational status: retired How many Children do You have: 1 Feels Safe at Home: Yes Childhood Exposure to Second-Hand Smoke: Yes caffeine: Yes during the past year weight has: remained stable Dental Care, Regularly: Yes Physical Activity Frequency: Daily Seatbelt Use: sometimes Sunscreen Use: No Review of Systems Review of Systems: All systems reviewed & are unremarkable except as noted in HPI & below Physical Exam Physical Exam: General: patient resting comfortably, NAD, non-toxic in appearance, AA&O x 4 Skin: warm, dry, intact, no rashes or lesions HEENT: NC/AT, PERRL, EOMI, anicteric sclera, conjunctiva without injection, external ear normal to inspection and nontender, nares patent, moist mucus membranes, dentition intact, no oropharyngeal lesions, neck supple, trachea midline, no LAD, no thyromegaly, no JVD Heart: +S1/S2, regular, tachycardic with ectopy, no m/r/g, no carotid bruits, no evidence of failure Lungs: equal air entry bilaterally, no rales/rhonchi/wheezes Abd: +BS, soft, NT/ND, no masses/organomegaly/ascites Ext: warm, 2+ pulses in UE/LE bilaterally, no clubbing/cyanosis or edema Neuro: nonfocal, patient AA&O x 4, speech intact, no facial droop, moving all extremities on command with equal strength 5/5 Results & Data Results & Data ([facility]) Vital Signs (Past 12 Hours) Vital Signs Temp Pulse Resp BP Pulse Ox O2 Del Method 07/25/22 20:31 108 H 14 99 Room Air 07/25/22 20:31 141/82 H 07/25/22 20:30 106 H 22 94 Room Air 07/25/22 20:01 146/84 H 07/25/22 20:01 145 H 19 99 Room Air 07/25/22 20:00 126 H 19 98 07/25/22 19:53 103 H 15 99 07/25/22 16:54 37.0 C 116 H 17 139/90 98 Room Air Laboratory Results Laboratory Results WBC 7.77 K/ul (4.8-10.8) 07/25/22 17:15 RBC 6.12 M/uL (4.63-6.08) H 07/25/22 17:15 Hgb 18.5 g/dl (14.0-18.0) H 07/25/22 17:15 Hct 52.9 % (40.1-51.0) H 07/25/22 17:15 MCV 86.4 fL (80.0-100.0) 07/25/22 17:15 MCH 30.2 pg (25.0-34.0) 07/25/22 17:15 MCHC 35.0 g/dL (32.0-36.0) 07/25/22 17:15 RDW Std Deviation 37.8 fL (36.4-46.3) 07/25/22 17:15 RDW Coeff of [place] 11.9 % (11.5-14.5) 07/25/22 17:15 Plt Count 203 K/uL (130-400) 07/25/22 17:15 MPV 10.7 fL (9.4-12.4) 07/25/22 17:15 Immature Gran % (Auto) 0.3 % 07/25/22 17:15 Neut % (Auto) 75.4 % 07/25/22 17:15 Lymph % (Auto) 11.6 % 07/25/22 17:15 Clarke % (Auto) 9.5 % 07/25/22 17:15 Eos % (Auto) 2.6 % 07/25/22 17:15 Baso % (Auto) 0.6 % 07/25/22 17:15 Neut # (Auto) 5.86 K/uL (1.4-6.5) 07/25/22 17:15 Lymph # (Auto) 0.90 K/uL (1.2-3.4) L 07/25/22 17:15 Clarke # (Auto) 0.74 K/uL (0.24-0.82) 07/25/22 17:15 Eos # (Auto) 0.20 K/uL (0-0.50) 07/25/22 17:15 Baso # (Auto) 0.05 K/uL (0-0.2) 07/25/22 17:15 Immature Gran # (Auto) 0.02 K/uL (0.00-0.02) 07/25/22 17:15 PT 10.6 Seconds (9.0-12.0) 07/25/22 17:15 INR 1.0 (0.9-1.1) 07/25/22 17:15 APTT 26.0 Seconds (21.0-31.0) 07/25/22 17:15 PTT Ratio 0.9 07/25/22 17:15 D-Dimer 490 ug/L FEU (0-500) 07/25/22 17:15 Sodium 141 mmol/L (136-145) 07/25/22 17:15 Potassium 4.0 mmol/L (3.5-5.1) 07/25/22 17:15 Chloride 104 mmol/L (98-107) 07/25/22 17:15 Carbon Dioxide 32 mmol/L (21-32) 07/25/22 17:15 Anion Gap 5 (3-11) 07/25/22 17:15 BUN 14 mg/dl (6-23) 07/25/22 17:15 Creatinine 0.96 mg/dl (0.6-1.4) 07/25/22 17:15 Est Cr Clr Drug Dosing 73.6 ml/min 07/25/22 17:15 Est GFR ( Amer) 93.8 ml/min 07/25/22 17:15 Est GFR (Non-Af Amer) 80.9 ml/min 07/25/22 17:15 BUN/Creatinine Ratio 14.6 (10-20) 07/25/22 17:15 Glucose 110 mg/dl (70-99(Fasting)) H 07/25/22 17:15 Calcium 10.7 mg/dl (8.5-10.1) H 07/25/22 17:15 Magnesium 2.2 mg/dl (1.7-2.4) 07/25/22 17:15 Total Bilirubin 0.7 mg/dl (0.2-1.0) 07/25/22 17:15 AST 25 U/L (13-39) 07/25/22 17:15 ALT 26 U/L (7-52) 07/25/22 17:15 Alkaline Phosphatase 45 U/L (34-104) 07/25/22 17:15 Troponin I High Sens 9.6 pg/ml (0-20) 07/25/22 17:15 Total Protein 7.4 gm/dl (6.0-8.3) 07/25/22 17:15 Albumin 4.4 gm/dl (3.4-5.0) 07/25/22 17:15 Globulin 3.0 gm/dl (2.5-4.0) 07/25/22 17:15 Albumin/Globulin Ratio 1.5 (0.9-2) 07/25/22 17:15 TSH 1.733 uIu/ml (0.300-4.500) 07/25/22 17:15 SARS-CoV-2, RNA, NAAT NEGATIVE (NEGATIVE) 07/25/22 20:47 Impressions Chest X-Ray 07/25/22 16:57 XR chest 1V portable CLINICAL HISTORY: Chest pain, nonspecific TECHNIQUE: Single frontal radiograph of the chest was obtained. Comparison: Comparison is made to chest radiograph 06/03/2021 FINDINGS: No lines and tubes are seen. Cardiomegaly is noted. Reticular interstitial opacities are seen. No evidence of pleural effusion or pneumothorax. IMPRESSION: No acute chest disease. ACT 112: Negative or not required by law. Electronically signed by: Ruperto Watts M.D. 07/25/2022 5:59 PM Chest CTA 07/25/22 18:04 CT angio chest PE protocol CLINICAL HISTORY: PE TECHNIQUE: Multidetector row helical CT of the chest was performed with angiographic protocol. Coronal and sagittal reformations were obtained. Coronal and sagittal MIPS were obtained from the axial data set and were submitted for review. Automated dose lowering techniques and/or adjustment according to patient size were utilized for this exam. CT DOSE: 342.87 mGy.cm Comparison: Comparison is made to CTA chest 12/09/2021 FINDINGS: Lungs and pleura: Calcified granulomata and biapical scarring is seen. Multiple stable pulmonary nodules are seen including the followin mm nodule in the right upper lobe (series 4 image 188) 3 mm nodule in the left upper lobe (image 143) 6 mm nodule in the right middle lobe (image 128) 5 mm nodule in the right lower lobe (image 121) 3 mm nodule in the right upper lobe (image 180). Heart and pericardium: Heart size is normal. No pericardial effusion. Vessels: No evidence of pulmonary embolism. Mediastinum and marianna: Unremarkable. Chest wall and lower neck: Unremarkable. Abdomen: Unremarkable. Bones: Degenerative changes in the thoracic spine. IMPRESSION: 1. No pulmonary embolus is seen. 2. Pulmonary nodules as above. ACT 112: Negative or not required by law. Electronically signed by: Ruperto Watts M.D. 07/25/2022 7:33 PM Code Status & VTE Plan VTE Prophylaxis Plan VTE Prophylaxis will be ordered: Yes PG Care Time/CCT Total # of Minutes Spent Total Time Spent with Patient: Total time spent is greater than 50% in coordination of care (as documented) at patient's floor/unit and/or counseling patient: Coding Level of Care Code 85761 INT INP/OBS CARE 2/55MIN Diagnoses Heart palpitations R00.2 Polycythemia D75.1 Sarcoidosis D86.9
[2022-07-25] MEDS ORDERED: LACTATED RINGER'S 1,000 ML IV SCH (23:49)
[2022-07-26] MEDS ORDERED: METOPROLOL TARTRATE 1 MG/ML VIAL IV STA (04:06)
[2022-07-26] MEDS ORDERED: dilTIAZem HCl 5 MG/ML 5 ML VIAL IV STA (04:16)
--- NOTE | 2022-07-26 04:19 | Communication Note ---
Date of Service: July 26, 2022 Was first notified about patient's frequent bursts of rapid A. fib at approximately 1 AM by nurse. Nurse had attempted to catch abnormal rhythm on EKG but patient was in NSR by that time. Patient was asymptomatic. At approximately 4 AM, was notified a second time about an increasing frequency of atrial fibrillation with atrial flutter over the previous 10 minutes. Reviewed patient's chart, and spoke to telemetry, who confirmed that he'd had ~10 episodes of rapid atrial fibrillation over the last half hour, with the longest episodes lasting up to a minute, before returning to normal sinus rhythm. After rechecking the patient's vitals, IV Lopressor 5 mg was initially considered but was not given, as patient has a reported allergy to metoprolol (facial swelling). IV Cardizem 10 mg was given instead. Resident Activity Tracking Resident Involvement: Resident Care Provided Care Provided: Adult Hospital Medicine
[2022-07-26] MEDS ORDERED: ENOXAPARIN INJ 40 MG/0.4 ML SYR SQ SCH (06:00)
[2022-07-26 06:44] LABS: Hematocrit (blood only) 47.1 % (40.1-51.0); Hemoglobin 16.4 g/dl (14.0-18.0); Mean Corpuscular Hemoglobin 30.3 pg (25.0-34.0); Mean Corpuscular Hgb Conc 34.8 g/dL (32.0-36.0); Mean Corpuscular Volume 87.1 fL (80.0-100.0); Mean Platelet Volume 10.8 fL (9.4-12.4); Platelet Count 187 K/uL (130-400); RDW Coefficient of Variation 11.9 % (11.5-14.5); RDW Standard Deviation 38.2 fL (36.4-46.3); Red Blood Count 5.41 M/uL (4.63-6.08); White Blood Count 8.57 K/ul (4.8-10.8)
[2022-07-26 06:46] LABS: BUN Creatinine Ratio 13.7 (10-20); Calcium 9.1 mg/dl (8.5-10.1); Creatinine Clr Calc Pharmacy 74.4 ml/min; Est GFR (African American) 94.9 ml/min; Est GFR (Non-African American) 81.9 ml/min; Potassium 3.8 mmol/L (3.5-5.1)
--- NOTE | 2022-07-26 07:21 | Hospitalist Progress Note ---
Date of Service July 26, 2022 Assessment & Plan (1) Heart palpitations: (2) Polycythemia: (3) Sarcoidosis: Plan Patient diagnosed with Atrial Flutter. It is recommended that he continue with Diltiazem and Eliquis. It is also recommended that he complete a sleep study and cardiac MRI. Any additional information regarding discharge can be found in patient's discharge summary. IVF: None Diet: Regular DVT Ppx: Elliquis Code: Full Dispo: Home Admission and Anticipated Discharge Date Admission Date: July 25, 2022 Supervising Physician Co-Signing Physician Notes I have seen and examined patient. I agree with the hospital clinical course and above discharge summary as documented by medical practitioners. Subjective Patient discharged, see discharge summary for additional information. Review of Systems Review of Systems: See HPI. Physical Exam Physical Exam: Gen: NAD, alert, interactive HEENT: Supple, no LAD, no thyromegaly, no JVD Resp:Non-labored, no wheezing/rhonchi/rales, CTAB CV:RRR, normal S1/S2, no M/R/G Abd: Soft, non-distended, no TTP, normoactive bowels, no masses Extr: 2+ dp bilaterally, no edema Skin: No rashes lesions or erythema Results & Data Results & Data ([facility]) Vital Signs (Past 12 Hours) Vital Signs Temp Pulse Pulse Resp BP BP Pulse Ox 07/26/22 07:14 82 07/26/22 07:05 36.7 C 85 18 114/72 97 07/26/22 04:50 85 111/72 07/26/22 04:30 90 114/70 07/26/22 03:54 140 H 121/76 07/26/22 03:24 36.7 C 84 18 106/69 96 07/26/22 00:00 97 H 07/26/22 00:00 36.7 C 90 18 123/77 96 07/25/22 22:00 93 H 19 95 07/25/22 22:00 128/78 07/25/22 21:30 91 H 16 93 07/25/22 21:30 116/84 07/25/22 21:00 143 H 15 95 07/25/22 21:00 122/92 07/25/22 20:31 108 H 14 99 07/25/22 20:31 141/82 H 07/25/22 20:30 106 H 22 94 07/25/22 20:01 146/84 H 07/25/22 20:01 145 H 19 99 07/25/22 20:00 126 H 19 98 07/25/22 19:53 103 H 15 99 O2 Del Method 07/26/22 07:14 07/26/22 07:05 Room Air 07/26/22 04:50 07/26/22 04:30 07/26/22 03:54 07/26/22 03:24 Room Air 07/26/22 00:00 07/26/22 00:00 Room Air 07/25/22 22:00 07/25/22 22:00 07/25/22 21:30 07/25/22 21:30 07/25/22 21:00 07/25/22 21:00 07/25/22 20:31 Room Air 07/25/22 20:31 07/25/22 20:30 Room Air 07/25/22 20:01 07/25/22 20:01 Room Air 07/25/22 20:00 07/25/22 19:53 Laboratory Results Abnormal lab results 07/25/22 07/25/22 07/26/22 Range/Units 17:15 17:15 05:50 RBC 6.12 H (4.63-6.08) M/uL Hgb 18.5 H (14.0-18.0) g/dl Hct 52.9 H (40.1-51.0) % Lymph # (Auto) 0.90 L (1.2-3.4) K/uL Glucose 110 H 109 H (70-99(Fasting)) mg/dl Calcium 10.7 H (8.5-10.1) mg/dl Diagnostic Findings Chest X-Ray 07/25/22 16:57 XR chest 1V portable CLINICAL HISTORY: Chest pain, nonspecific TECHNIQUE: Single frontal radiograph of the chest was obtained. Comparison: Comparison is made to chest radiograph 06/03/2021 FINDINGS: No lines and tubes are seen. Cardiomegaly is noted. Reticular interstitial opacities are seen. No evidence of pleural effusion or pneumothorax. IMPRESSION: No acute chest disease. ACT 112: Negative or not required by law. Electronically signed by: Ruperto Watts M.D. 07/25/2022 5:59 PM Chest CTA 07/25/22 18:04 CT angio chest PE protocol CLINICAL HISTORY: PE TECHNIQUE: Multidetector row helical CT of the chest was performed with angiographic protocol. Coronal and sagittal reformations were obtained. Coronal and sagittal MIPS were obtained from the axial data set and were submitted for review. Automated dose lowering techniques and/or adjustment according to patient size were utilized for this exam. CT DOSE: 342.87 mGy.cm Comparison: Comparison is made to CTA chest 12/09/2021 FINDINGS: Lungs and pleura: Calcified granulomata and biapical scarring is seen. Multiple stable pulmonary nodules are seen including the followin mm nodule in the right upper lobe (series 4 image 188) 3 mm nodule in the left upper lobe (image 143) 6 mm nodule in the right middle lobe (image 128) 5 mm nodule in the right lower lobe (image 121) 3 mm nodule in the right upper lobe (image 180). Heart and pericardium: Heart size is normal. No pericardial effusion. Vessels: No evidence of pulmonary embolism. Mediastinum and marianna: Unremarkable. Chest wall and lower neck: Unremarkable. Abdomen: Unremarkable. Bones: Degenerative changes in the thoracic spine. IMPRESSION: 1. No pulmonary embolus is seen. 2. Pulmonary nodules as above. ACT 112: Negative or not required by law. Electronically signed by: Ruperto Watts M.D. 07/25/2022 7:33 PM Resident Activity Tracking Resident Involvement: Resident Care Provided Care Provided: [facility] Medicine
[2022-07-26] MEDS ORDERED: AMOXICILLIN/CLAVULANATE 875 MG TAB PO SCH (08:00)
[2022-07-26] MEDS ORDERED: ASPIRIN 81 MG ECTAB PO SCH (09:00)
--- NOTE | 2022-07-26 11:19 | XCELERA ---
[id number]
--- NOTE | 2022-07-26 11:24 | Electrocardiogram Report ---
Test Reason : Blood Pressure : / mmHG Vent. Rate : 101 BPM Atrial Rate : 101 BPM P-R Int : 120 ms QRS Dur : 122 ms QT Int : 372 ms P-R-T Axes : 047 204 020 degrees QTc Int : 482 ms Sinus tachycardia with Premature supraventricular complexes Right bundle branch block Abnormal ECG When compared with ECG of 25-JUL-2022 17:09, (unconfirmed) Borderline criteria for Inferior infarct are no longer Present Confirmed by Steven Lawson ([id number]) on 07/26/2022 11:24:11 AM Referred By: REFERRED SELF Confirmed By:Rajeev Lawson
--- NOTE | 2022-07-26 11:25 | Electrocardiogram Report ---
Test Reason : Blood Pressure : / mmHG Vent. Rate : 133 BPM Atrial Rate : 275 BPM P-R Int : 000 ms QRS Dur : 116 ms QT Int : 354 ms P-R-T Axes : 254 249 -15 degrees QTc Int : 526 ms Atrial flutter with variable A-V block Right bundle branch block Abnormal ECG When compared with ECG of 25-JUL-2022 19:48, (unconfirmed) Atrial flutter has replaced Sinus rhythm ST now depressed in Inferior leads T wave inversion more evident in Inferior leads Confirmed by Steven Lawson ([id number]) on 07/26/2022 11:25:05 AM Referred By: REFERRED SELF Confirmed By:Rajeev Lawson
--- NOTE | 2022-07-26 12:39 | Cardiology Consultation ---
Date of Consultation July 26, 2022 Assessment & Plan (1) Atrial flutter: (2) Heart palpitations: (3) Sarcoidosis: Plan 1. Atrial flutter: His rhythm at presentation was atrial flutter. This appears to have been extended in nature. He had some brief episodes of atrial flutter overnight as well. Minimally symptomatic at that time. It is unclear how much atrial flutter he has been having. He does not appear to be very symptomatic with the episodes. Outside of noticing higher heart rates will be difficult to know when this occurs. We discussed the mechanism of atrial flutter. Very possibly related to occult obstructive sleep apnea or even possibly cardiac sarcoid. No recurrent pulmonary embolus on his CTA. In the short term I recommended systemic anticoagulation based on his risk factors for stroke. He had been on Eliquis previously 1st pulmonary embolus. However, he has some aversion to medical therapy and would not immediately consent to taking Eliquis again. I also suggested low-dose diltiazem. This may limit higher rates associated with atrial flutter. The best solution would be catheter based therapy. This offers the potential to cure the process in obviate the need for further medical treatment. He feels this may be an attractive option was to discuss all of his options with his and consider a 2nd opinion with Dr. Mena as he already has an appointment scheduled in the near future. 2. Sarcoid: He appears to have had sarcoid initially diagnosed with lymph node biopsy after parotid swelling. He was previously followed by a daycare teacher but has not seen anyone in a few years. Multiple pulmonary nodules were noted on his CT scan performed last night. While this not have any signs of more malignant cardiac arrhythmias, it is possible that some of his symptoms are related to cardiac sarcoid. This would be best evaluated with an MRI in the outpatient setting. My recommendations include restarting Eliquis 5 mg twice daily, diltiazem 120 mg daily or equivalent and scheduling ablation for more definitive therapy. Cardiac MRI should also be considered in the outpatient setting. History of Present Illness Reason for Consultation: Palpitations Requesting Physician: Jamel Attending Physician: Brynn Mccullough, DO History of Present Illness The patient is a 66-year-old gentleman with a history of pulmonary emboli and atrial ectopy who has been experiencing worsening symptoms of palpitations. In May of 2021 the patient was having palpitations and presented to the emergency room for evaluation. He has noted that time to have bilateral pulmonary emboli and started on systemic anticoagulation. Initially his palpitations resolved but returned later this year. It became more severe yesterday were associated with episodes of tachycardia. The patient does have a pulse oximeter at home and he has noticed some higher heart rates. Some of these heart rates were quite sustained in duration. In fact, yesterday he reported few hours of higher heart rates. Curiously, this was not associated with significant dizziness, lightheadedness dyspnea or chest pain. He presented to an outpatient visit and was noted to be in atrial flutter. He was sent to the emergency room where the arrhythmia resolved. Patient states that he has generally been active. He usually walks 3-5 miles daily and does not have symptoms associated with activity. However, more recently he has been experiencing symptoms of general lightheadedness and dizziness that appear to be associated with sinus congestion. He did not describe the symptoms as presyncope. He has not suffered syncope. Did not describe exertional dyspnea or any symptoms of chest discomfort. He is generally aware of some brief palpitations but was surprised that the elevated heart rates noted on his pulse oximeter. Since admission he has felt well. He has not noticed significant palpitations overnight. No new symptoms. Allergies Allergy/AdvReac Type Severity Reaction Status Date / Time metoprolol Allergy Intermediate Swelling Verified 07/26/22 11:46 of Lip/Tongue/Throat Home Medications Medication Instructions Recorded Confirmed Type aspirin 81 mg tablet,delayed 81 mg PO DAILY 12/08/21 07/25/22 History release ([place] Low Dose Aspirin) lactobacillus combination no.4 3 3,000 mmu cells PO DAILY 07/25/22 07/25/22 History billion cell capsule (Probiotic) triamcinolone acetonide 55 mcg 1 spray intranasal DAILY PRN 07/25/22 07/25/22 History nasal spray aerosol (Nasacort) Congestion Patient History Medical History Anxiety Bilateral pulmonary embolism BPH (benign prostatic hyperplasia) Dyslipidemia Heart palpitations Hyperglycemia Insomnia Lower urinary tract symptoms Pain in right testicle Sarcoidosis Surgical History H/O eye surgery H/O knee surgery History of facial surgery S/P cholecystectomy Family History Mother Lymphoma Father Alcohol abuse Brother Alcohol abuse Bipolar disorder Prostate cancer Depression Cancer Uncle Prostate cancer Cancer Parkinson disease Denies family history of Myocardial infarction Lung cancer Social History Smoking Status: Never smoker Second Hand Exposure: No; Do You Dip or Chew Tobacco: No; Tobacco Cessation Education Requested by Patient: No Hx Alcohol Use: No Hx Substance Use: No Preferred Language: Telugu Communication Ability: Effective Visual Impairment: Limited Hearing Ability: Hard of Hearing Systems Protection Technician Required: No Beliefs That Will Affect Care: None marital status: Current Living Situation: Spouse current occupational status: retired How many Children do You have: 1 Other Information That Helps Us Care for You: No Feels Safe at Home: Yes Safety Concerns: Feels Safe At This Time Childhood Exposure to Second-Hand Smoke: Yes caffeine: Yes during the past year weight has: remained stable Dental Care, Regularly: Yes Physical Activity Frequency: Daily Seatbelt Use: sometimes Sunscreen Use: No Assistive Devices: None Review of Systems Review of Systems: Per HPI. He reports some cold sensation in his hands when working outside on cold days. He reports feeling chilled most of the time. He did not endorse recent symptoms of a viral illness or fevers. No lower extremity edema. He claims to sleep poorly. His states that he snores on occasion. No orthopnea. Physical Exam Physical Exam: The patient is alert and oriented. Mood and affect appeared normal. He answered all questions appropriately. HEENT: Pupils are equal and reactive to light and accommodation. Extraocular movements are intact. The sclerae are anicteric. Neuro: Cranial nerves intact Neck: Patient's neck is supple. He has palpable carotid pulses bilaterally without bruits on auscultation. There is no evidence of jugular venous distention. The thyroid is not enlarged. Lungs: Clear to auscultation bilaterally. He has good air movement without use of accessory muscles. No rales wheezes or rhonchi. Cardiac: Heart demonstrates a regular rate and rhythm. Normal S1 and S2. No murmurs on examination. Pulses: The patient has palpable radial pulses bilaterally that are equal in intensity Extremities: There was no evidence of hypoperfusion. There is no cyanosis or clubbing. There is no edema. Skin: I did not appreciate any rashes on examination today. Results & Data ([facility]) Vital Signs (Past 12 Hours) Vital Signs Temp Pulse Pulse Resp BP Pulse Ox O2 Del Method 07/26/22 11:18 36.8 C 90 18 111/75 93 Room Air 07/26/22 07:14 82 07/26/22 07:05 36.7 C 85 18 114/72 97 Room Air 07/26/22 04:50 85 111/72 07/26/22 04:30 90 114/70 07/26/22 03:54 140 H 121/76 07/26/22 03:24 36.7 C 84 18 106/69 96 Room Air 07/26/22 00:00 97 H 07/26/22 00:00 36.7 C 90 18 123/77 96 Room Air Laboratory Results Abnormal Lab Results 07/25/22 07/25/22 07/25/22 17:15 17:15 17:15 WBC 7.77 RBC 6.12 H Hgb 18.5 H Hct 52.9 H MCV 86.4 MCH 30.2 MCHC 35.0 RDW Std Deviation 37.8 RDW Coeff of [place] 11.9 Plt Count 203 MPV 10.7 Immature Gran % (Auto) 0.3 Neut % (Auto) 75.4 Lymph % (Auto) 11.6 [place] % (Auto) 9.5 Eos % (Auto) 2.6 Baso % (Auto) 0.6 Neut # (Auto) 5.86 Lymph # (Auto) 0.90 L [place] # (Auto) 0.74 Eos # (Auto) 0.20 Baso # (Auto) 0.05 Immature Gran # (Auto) 0.02 PT 10.6 INR 1.0 APTT 26.0 PTT Ratio 0.9 D-Dimer 490 Sodium 141 Potassium 4.0 Chloride 104 Carbon Dioxide 32 Anion Gap 5 BUN 14 Creatinine 0.96 Est Cr Clr Drug Dosing 73.6 Est GFR ( Amer) 93.8 Est GFR (Non-Af Amer) 80.9 BUN/Creatinine Ratio 14.6 Glucose 110 H Calcium 10.7 H Ionized Calcium Magnesium 2.2 Total Bilirubin 0.7 AST 25 ALT 26 Alkaline Phosphatase 45 Troponin I High Sens 9.6 Total Protein 7.4 Albumin 4.4 Globulin 3.0 Albumin/Globulin Ratio 1.5 TSH SARS-CoV-2, RNA, NAAT 07/25/22 07/25/22 07/25/22 17:15 17:15 20:47 WBC RBC Hgb Hct MCV MCH MCHC RDW Std Deviation RDW Coeff of [place] Plt Count MPV Immature Gran % (Auto) Neut % (Auto) Lymph % (Auto) [place] % (Auto) Eos % (Auto) Baso % (Auto) Neut # (Auto) Lymph # (Auto) [place] # (Auto) Eos # (Auto) Baso # (Auto) Immature Gran # (Auto) PT INR APTT PTT Ratio D-Dimer Sodium Potassium Chloride Carbon Dioxide Anion Gap BUN Creatinine Est Cr Clr Drug Dosing Est GFR ( Amer) Est GFR (Non-Af Amer) BUN/Creatinine Ratio Glucose Calcium Ionized Calcium Magnesium Total Bilirubin AST ALT Alkaline Phosphatase Troponin I High Sens Total Protein Albumin Globulin Albumin/Globulin Ratio TSH 1.733 SARS-CoV-2, RNA, NAAT NEGATIVE NEGATIVE 07/26/22 07/26/22 07/26/22 05:50 05:50 05:50 WBC 8.57 RBC 5.41 Hgb 16.4 Hct 47.1 MCV 87.1 MCH 30.3 MCHC 34.8 RDW Std Deviation 38.2 RDW Coeff of [place] 11.9 Plt Count 187 MPV 10.8 Immature Gran % (Auto) Neut % (Auto) Lymph % (Auto) [place] % (Auto) Eos % (Auto) Baso % (Auto) Neut # (Auto) Lymph # (Auto) [place] # (Auto) Eos # (Auto) Baso # (Auto) Immature Gran # (Auto) PT INR APTT PTT Ratio D-Dimer Sodium 141 Potassium 3.8 Chloride 106 Carbon Dioxide 29 Anion Gap 6 BUN 13 Creatinine 0.95 Est Cr Clr Drug Dosing 74.4 Est GFR ( Amer) 94.9 Est GFR (Non-Af Amer) 81.9 BUN/Creatinine Ratio 13.7 Glucose 109 H Calcium 9.1 Ionized Calcium 1.16 Magnesium Total Bilirubin AST ALT Alkaline Phosphatase Troponin I High Sens Total Protein Albumin Globulin Albumin/Globulin Ratio TSH SARS-CoV-2, RNA, NAAT Diagnostic Findings Echocardiogram performed today revealed preserved LV systolic function. Stage I diastolic dysfunction. No significant valvular heart disease. Unchanged from 05/2021 ECG Additional Comments: EKG showed atrial flutter with right bundle branch block Subsequent EKG demonstrates sinus rhythm with right bundle branch block PG Care Time/CCT Total # of Minutes Spent Total Time Spent with Patient: Total time spent is greater than 50% in coordination of care (as documented) at patient's floor/unit and/or counseling patient: Coding Level of Care Code INP/OBS CONSULT LVL 4, 60 MIN Diagnoses Atrial flutter I48.92 Heart palpitations R00.2 Sarcoidosis D86.9
--- NOTE | 2022-07-26 12:44 | Discharge Summary ---
Date of Service July 26, 2022 Admission HPI Per Admitting Provider Bala Mcwilliams is a pleasant 66-year-old male with history of hyperlipidemia, BPH, prior PE and sarcoidosis presenting at the request of his PCP with rapid, irregular heart rate. Patient has experienced episodes of fast heart rate and palpitations in the past. He wore a heart monitor in June 2021 for a week which revealed baseline sinus tachycardia with no identified arrhythmias. He has been on metoprolol in the past for palpitations which seemed to help his heart rate. However, he did get a rash on 2 occasions associated with taking metoprolol. Patient began feeling palpitations this morning around 11:00 which persisted for approximately 2 to 2-1/2 hours. He reports checking his heart rate using a home oxygen monitorheart rate varied from the 50s to the 160s. He called his PCP and was later seen in the office. He had an EKG performed which was concerning for atrial fibrillation with RVRrate of 113. He was subsequently sent to the ER. Patient is active and independent. He denies chest pain, shortness of breath or syncope. He does have occasional episodes of vertigo which do not seem to correspond with palpitations. He denies dyspnea, orthopnea or edema. Patient has seen ENT for his episodic vertigo. Believed to be secondary in part to sinusitis. He was started on Augmentin 875/125 twice daily for 10-day course (to continue through 07/31/2022) as well as Nasacort. These were the only 2 new medications. Patient denies increased caffeine use or stimulants. No additional complaints at this time In the ER patient with variable heart rate ranging 91 to 145 bpm. Several EKGs obtainedseem to be sinus tachycardia with PACs. Seems to be sinus tachycardia with PACs on monitor as well. ER course: Normal saline x500 mL, magnesium sulfate x1 g, diltiazem 50 mg IV, Augmentin 1 tab Admission Exam Per Admitting Provider General: patient resting comfortably, NAD, non-toxic in appearance, AA&O x 4 Skin: warm, dry, intact, no rashes or lesions HEENT: NC/AT, PERRL, EOMI, anicteric sclera, conjunctiva without injection, external ear normal to inspection and nontender, nares patent, moist mucus me mbranes, dentition intact, no oropharyngeal lesions, neck supple, trachea midline, no LAD, no thyromegaly, no JVD Heart: +S1/S2, regular, tachycardic with ectopy, no m/r/g, no carotid bruits, no evidence of failure Lungs: equal air entry bilaterally, no rales/rhonchi/wheezes Abd: +BS, soft, NT/ND, no masses/organomegaly/ascites Ext: warm, 2+ pulses in UE/LE bilaterally, no clubbing/cyanosis or edema Neuro: nonfocal, patient AA&O x 4, speech intact, no facial droop, moving all extremities on command with equal strength 5/5 Principal Diagnosis atrial flutter Discharge Exam Excerpted from Dr. Erickson' progress note: "General: patient resting comfortably, NAD, non-toxic in appearance, AA&O x 4 Skin: warm, dry, intact, no rashes or lesions HEENT: NC/AT, PERRL, EOMI, anicteric sclera, conjunctiva without injection, external ear normal to inspection and nontender, nares patent, moist mucus membranes, dentition intact, no oropharyngeal lesions, neck supple, trachea midline, no LAD, no thyromegaly, no JVD Heart: +S1/S2, regular, tachycardic with ectopy, no m/r/g, no carotid bruits, no evidence of failure Lungs: equal air entry bilaterally, no rales/rhonchi/wheezes Abd: +BS, soft, NT/ND, no masses/organomegaly/ascites Ext: warm, 2+ pulses in UE/LE bilaterally, no clubbing/cyanosis or edema Neuro: nonfocal, patient AA&O x 4, speech intact, no facial droop, moving all extremities on command with equal strength 5/5" Discharge Data Allergies Allergy/AdvReac Type Severity Reaction Status Date / Time metoprolol Allergy Intermediate Swelling Verified 07/26/22 11:46 of Lip/Tongue/Throat Consultations 07/25/22 20:04 ED Decision to Admit Stat 07/25/22 23:49 Consult Cardiology Routine Ordered Studies 07/25/22 18:04 CT angio chest PE protocol Stat Hospital Course (1) Heart palpitations: 66-year-old male preated with heart palpitations, subsequently found to have atrial flutter while here. - ECG and telemetry monitoring revealing multiple episodes of atrial flutter with RVR -- responded well to diltiazem - TTE without RWMAs, valvular disease; LVEF 60-65% - No electrolyte, hematologic, or thyroid anomalies; patient does have history of sarcoidosis (see below) - Please note that patient has reported allergy to metoprolol, resulting in facial swelling/rash --> May wish to consider allergy and immunology consultation in future if beta-len therapy is ever indicated/for formal allergen testing - Very likely secondary to underlying KENDALL or cardiac sarcoidosis Cardiology consulted while here: -- Recommending initiation of diltiazem 120mg daily and apixaban 5 mg b.i.d. (CHADS-VASC = 3) -- would like to hold off until seen by Dr. Mena -- Recommending outpatient Cardiac MRI as part of w/u for sarcoid-related contribution (cannot perform at [facility]) -- Recommending sleep study; patient declined, may wish to continue discussions re: home sleep study -- F/U with Dr. Mena week after discharge (w/ [facility] Cardiology) to discuss further; ?ablation candidacy (2) Polycythemia: - Hgb elevated 18.5, HCT elevated at 52.9 on arrival - Suspect largely hemoconcentration given resolution with IVF -- Hgb 16.4 at discharge - Sleep study recommended as above (3) Sarcoidosis: - Patient was diagnosed with sarcoidosis in 2004 after presenting with swelling of his parotid gland. - He did have a lymph node biopsy. - Stable pulmonary lesions noted on CT. - Question if mild elevation of calcium (10.7) secondary to sarcoid. - Question if possibility of cardiac sarcoid -- cardiology recommending Cardiac MRI, as above (TTE normal) Ionized calcium WNL Plan Code: Patient identified as FULL CODE Total Time Total Time Spent Total Time Spent (In Minutes): 30 Discharge Plan Discharge Items Patient Disposition: Home - Self-Care Reason For Visit: PALPITATIONS Discharge Diagnosis: atrial flutter Activity: Per Instructions section Non-emergency contact: Primary Care Provider and Web[employer] Consultant Call non-emergency contact if: you have any medication questions and your symptoms worsen Follow-up/Referrals: Cathryn Bello MD [Primary Care Provider] - Diet: Regular Addtl Attending Provider Instructions: You were seen at [facility] for evaluation of palpitations. Cardiac monitoring revealed a rhythm called atrial flutter. Atrial flutter is a condition whereby the top part of the heart beats very fast, more than it should. Thankfully, you responded very well to medications that slowed down the heart rate. You will be continuing one of these as an outpatient. You saw cardiology, who recommended a cardiac MRI and sleep study as part of the work-up for why you might have developed this rhythm. The cardiac MRI will be important to discern whether or not your history of sarcoidosis may have any relationship. The sleep study will evaluate obstructive sleep apnea -- which can put stress on the heart when untreated and cause it to go into rhythms like atrial flutter (a very common and treatable cause). Thankfully, we live in an age where sleep studies can be done at home. While we do recommend this study, you preferred to hold off. Please continue discussions with your primary care provider and Dr. Mena. Your technical inspector while here recommended initiation of two medications: diltiazem (with an aim to prevent the heart from beating too fast) and a blood thinner (apixaban). During atrial flutter, the top part of the heart "quivers" rather than "pumps"; this allows blood to stay somewhat still in the top part of the heart -- "still" blood likes forming clots, which can be pumped out by the bottom part of the heart and result in a stroke. To significantly lower the chances of this from happening, blood thinners like apixaban are routinely recommended in folks who have atrial flutter. -- Take diltiazem ER (Cardiezem) 120mg once daily at bedtime -- Take apixaban (Eliquis) 5mg, twice daily (as close to 12 hours apart as possible) Please follow-up with your primary care provider within 1-2 weeks to review this visit. Please also follow up with Dr. Mena next week, as we previously discussed. You should plan on discussing candidacy for ablation more at that visit. In the interim, if you experience significant chest pain, shortness of breath, lightheadedness or feelings like you are going to pass out, severe weakness, numbness or tingling, or other worrisome symptoms, please report to the ER immediately for evaluation. Thank you for letting us participate in your care. Pending Studies at Discharge: No Stand-Alone Forms: [facility], Smoking Cessation Medications and DC Order Prescriptions: New diltiazem HCl 120 mg capsule,extended release 24hr 120 mg PO HS 30 Days Qty: 30 1RF Eliquis 5 mg tablet 5 mg PO Q12H 30 Days Qty: 60 2RF Continued aspirin [[place] Low Dose Aspirin] 81 mg tablet,delayed release (DR/EC) 81 mg PO DAILY triamcinolone acetonide [Nasacort] 55 mcg aerosol,spray 1 spray intranasal DAILY PRN (Reason: Congestion) Rx Instructions: administer into each nostril Probiotic 3 billion cell Capsule 3,000 mmu cells PO DAILY Rx Instructions: administer with a meal Discharge Orders: Discharge Order (Routine); Ordered 07/26/22 Ordered By: Bang Asif/Other Patient Handouts: ED Atrial Flutter Admission Data Admit Date/Time: 07/25/22 21:00 Attending Provider: Brynn Mccullough Admit Provider: Brynn Mccullough Primary Care Provider: Cathryn Bello Other Providers: Brynn Mccullough ; Steven Lawson Other Interventions: Discharge Summary Assessment (RN) Last Done: 07/26/22 14:26 Supervising Physician Co-Signing Physician Notes I have seen and examined patient. I agree with the hospital clinical course and above discharge summary as documented by medical numerical control operator. Resident Activity Tracking Resident Involvement: Resident Care Provided Care Provided: Adult Hospital Medicine
--- NOTE | 2022-07-26 14:11 | Electrocardiogram Report ---
Test Reason : Blood Pressure : / mmHG Vent. Rate : 105 BPM Atrial Rate : 105 BPM P-R Int : 138 ms QRS Dur : 116 ms QT Int : 360 ms P-R-T Axes : 064 229 037 degrees QTc Int : 475 ms Sinus tachycardia with Premature atrial complexes Possible Left atrial enlargement Right superior axis deviation Incomplete right bundle branch block Possible Inferior infarct , age undetermined Abnormal ECG When compared with ECG of 13-AUG-2021 03:50, Premature atrial complexes are now Present Confirmed by Steven Lawson ([id number]) on 07/26/2022 11:17:26 AM Referred By: REFERRED SELF Confirmed By:Rajeev Lawson
== END 2022-07-26 15:35 | disposition home or self-care (01) ==
LOC: ED 16:24 → INTOOBSV 21:00 → 4W 21:00